=== PATIENT | male | born 1965 | race Caucasian/White ===

== ENCOUNTER 2018-01-06 15:56 | Emergency (ER) | payer OTHER ==
[~2018-01-06] VITALS: Ht 182.9 cm; Wt 101.0 kg
[~2018-01-06 15:56] MED LIST: CYCL-1 PO; HYDR-569 PO; NAPR-1154 PO
[2018-01-06 16:02] VITALS: BP 152/92
[2018-01-06] MEDS ORDERED: ketorolac tromethamine 15mg/ml inj. IM ONE (16:30)
[2018-01-06] MEDS ORDERED: diazepam 5mg tablet PO ONE (16:30)
[2018-01-06] MEDS ORDERED: NAPR-56 PO (16:32)
[2018-01-06] MEDS ORDERED: METH-360 PO (16:32)
== END 2018-01-06 16:55 | disposition home or self-care (01) ==
LOC: ER 15:57
DX: M25.512 Pain in left shoulder (principal); E78.00 Pure hypercholesterolemia, unspecified; I10 Essential (primary) hypertension; F12.90 Cannabis use, unspecified, uncomplicated; Z90.49 Acquired absence of other specified parts of digestive tract; Z79.899 Other long term (current) drug therapy
CPT/HCPCS: 29105; 96372; 99283; A4565; J1885

== ENCOUNTER 2018-05-17 15:34 | Emergency (ER) | payer MEDICAID, OTHER ==
[~2018-05-17] VITALS: Ht 182.9 cm; Wt 98.0 kg
[~2018-05-17 15:34] MED LIST changes: +HYDR-4383 PO; -HYDR-569 PO; +METH-360 PO
[2018-05-17 15:44] VITALS: BP 169/88
[2018-05-17] MEDS ORDERED: DOXYCYCLINE 100MG CAPSULE PO STA (19:07)
[2018-05-17] MEDS ORDERED: LIDOcaine Viscous 15ml cup MM PRN (19:10)
[2018-05-17] MEDS ORDERED: cephalexin 250mg capsule PO ONE (19:10)
[2018-05-17] MEDS ORDERED: ondansetron 4mg rapidly disintigrating tab PO ONE (19:10)
[2018-05-17] MEDS ORDERED: ketorolac trometh inj. 60 MG/2 ML VIAL IM ONE (19:10)
[2018-05-17] MEDS ORDERED: LIDOcaine 1% w/epiNEPHrine 1:200,000 30ml vial IJ ONE (19:10)
[2018-05-17] MEDS ORDERED: dexamethasone sod phosphate 10mg/ml inj IM STA (20:28)
[2018-05-17] MEDS ORDERED: DOXY100C43 PO (20:35)
[2018-05-17] MEDS ORDERED: HYDR-3965 PO (20:35)
[2018-05-17] MEDS ORDERED: CEPH-572 PO (20:35)
[2018-06-11] MEDS ORDERED: IBUP-1986 PO (11:56)
[2018-06-11] MEDS ORDERED: CIPR-230 PO (11:56)
== END 2018-05-17 20:59 | disposition home or self-care (01) ==
LOC: ER 15:35
DX: J36 Peritonsillar abscess (principal); L60.0 Ingrowing nail; E78.00 Pure hypercholesterolemia, unspecified; I10 Essential (primary) hypertension; F12.90 Cannabis use, unspecified, uncomplicated; Z79.899 Other long term (current) drug therapy; Z90.49 Acquired absence of other specified parts of digestive tract
CPT/HCPCS: 10060; 42700; 96372; 99284; J1100; J1885; J3490

== ENCOUNTER 2018-07-30 19:10 | Emergency (ER) | payer MEDICAID ==
[~2018-07-30] VITALS: Ht 182.9 cm; Wt 98.0 kg
[~2018-07-30 19:10] MED LIST changes: +IBUP-1986 PO
[2018-07-30] MEDS ORDERED: ERYT1OIN6 RIGHTEYE (22:17)
[2018-07-30 22:23] VITALS: BP 154/94
== END 2018-07-30 22:24 | disposition home or self-care (01) ==
LOC: ER 19:10
DX: S05.01XA Injury of conjunctiva and corneal abrasion without foreign body, right eye, initial encounter (principal); I10 Essential (primary) hypertension; E78.00 Pure hypercholesterolemia, unspecified; F12.90 Cannabis use, unspecified, uncomplicated; X58.XXXA Exposure to other specified factors, initial encounter; Y93.89 Activity, other specified; Y92.89 Other specified places as the place of occurrence of the external cause; Y99.8 Other external cause status
CPT/HCPCS: 99283; 99284

== ENCOUNTER 2019-05-31 01:29 | Emergency (ER) | payer MEDICAID ==
[~2019-05-31] VITALS: Ht 182.9 cm; Wt 90.9 kg
[2019-05-31 01:33] VITALS: BP 137/81
[2019-05-31] MEDS ORDERED: NO HOME MEDS (01:40)
[2019-05-31 02:14] LABS: ALANINE AMINOTRANSFERASE 31 U/L (12-78); ALBUMIN 3.8 G/DL (3.4-5.0); ALBUMIN/GLOBULIN RATIO 0.9 (1.1-1.5); ALKALINE PHOSPHATASE 122 IU/L (46-116); ANION GAP 2 (8-16); ASPARTATE AMINO TRANSFERASE 20 U/L (10-37); BILIRUBIN,TOTAL 0.8 MG/DL (0.1-1.0); BLOOD UREA NITROGEN 18 MG/DL (7-18); BUN/CREATININE RATIO 15.5 (5.4-32.0); CALCIUM 8.9 MG/DL (8.5-10.1); CHLORIDE 104 MMOL/L (99-107); CREATININE 1.16 MG/DL (0.60-1.10); GLUCOSE 115 MG/DL (70-104); POTASSIUM 4.2 MMOL/L (3.5-5.1); SODIUM 140 MMOL/L (135-145); TOTAL CARBON DIOXIDE 34.3 MMOL/L (24-32); TOTAL PROTEIN 7.9 G/DL (6.4-8.2); eGFR 66 ML/MIN
[2019-05-31 02:26] LABS: BASOPHILS % (AUTO) 0.3 % (0-1); EOSINOPHILS # (AUTO) 0.1 X10'3 (0-0.9); EOSINOPHILS % (AUTO) 0.6 % (0-6); HEMOGLOBIN 15.6 g/dl (14.0-17.9); LYMPHOCYTES # (AUTO) 0.8 X10'3 (1.1-4.8); LYMPHOCYTES % (AUTO) 9.1 % (21-51); MEAN CORPUSCULAR HEMOGLOBIN 29.7 PG (27.0-31.0); MEAN CORPUSCULAR HGB CONC 34.6 g/dL (33.0-36.5); MEAN CORPUSCULAR VOLUME 85.9 FL (78-98); MEAN PLATELET VOLUME 8.9 FL (7.4-10.4); MONOCYTES # (AUTO) 0.4 X10'3 (0-0.9); MONOCYTES % (AUTO) 3.9 % (2-12); NEUTROPHILS % (AUTO) 86.1 % (42-75); PLATELET COUNT 225 X10'3 (140-440); RED BLOOD COUNT 5.24 X10'6 (4.70-6.10); RED CELL DISTRIBUTION WIDTH 14.1 % (11.5-14.5); WHITE BLOOD COUNT 9.3 X10'3 (4.5-11.0)
[2019-05-31] MEDS ORDERED: acetaminophen 325mg tablet PO ONE (03:15)
[2019-05-31] MEDS ORDERED: ondansetron 4mg rapidly disintigrating tab PO ONE (03:15)
--- NOTE | 2019-05-31 03:47 | NUR ---
PT IS DC READY, REPORTS SEVERE INDEGESTION AND STATES STILL SOME MILD NAUSEA. DR. HAMMOND UPDATED AND ORDERING IV MEDS FOR HIS INDEGESTION PRIOR TO DC. PT CALLING HIS GIRLFRIEND NOW FOR DC RIDE HOME.
[2019-05-31] MEDS ORDERED: PANT-47 PO (03:48)
[2019-05-31] MEDS ORDERED: famotidine/PF 10 mg/ml inj IV ONE (03:50)
[2019-05-31] MEDS ORDERED: pantoprazole 40 MG vial IV ONE (03:50)
== END 2019-05-31 03:57 | disposition home or self-care (01) ==
LOC: ER 01:29
DX: R07.89 Other chest pain (principal); E78.00 Pure hypercholesterolemia, unspecified; I10 Essential (primary) hypertension; F12.90 Cannabis use, unspecified, uncomplicated; Z90.49 Acquired absence of other specified parts of digestive tract; Z79.899 Other long term (current) drug therapy
CPT/HCPCS: 36415; 71045; 80053; 84484; 85025; 93005; 96374; 96375; 99284; C9113; J3490

== ENCOUNTER 2022-08-15 15:52 | Emergency (ER) | payer MEDICAID ==
[~2022-08-15] VITALS: Ht 185.4 cm; Wt 97.7 kg
[~2022-08-15 15:52] MED LIST changes: -CYCL-1 PO; -HYDR-4383 PO; -IBUP-1986 PO; -METH-360 PO; -NAPR-1154 PO; +NO HOME MEDS; +PANT-47 PO
[2022-08-15] MEDS ORDERED: normal saline 1000ml 1,000 ML IV ONE (16:10)
[2022-08-15 16:48] LABS: BASOPHILS % (AUTO) 0.1 % (0-1); EOSINOPHILS % (AUTO) 0.6 % (0-6); HEMATOCRIT 44.4 % (42.0-52.0); HEMOGLOBIN 15.1 g/dl (14.0-17.9); LYMPHOCYTES # (AUTO) 0.6 X10'3 (1.1-4.8); MEAN CORPUSCULAR HEMOGLOBIN 29.4 PG (27.0-31.0); MEAN CORPUSCULAR VOLUME 86.4 FL (78-98); MEAN PLATELET VOLUME 8.7 FL (7.4-10.4); MONOCYTES # (AUTO) 0.3 X10'3 (0-0.9); MONOCYTES % (AUTO) 3.6 % (2-12); NEUTROPHILS % (AUTO) 87.7 % (42-75); PLATELET COUNT 188 X10'3 (140-440); RED BLOOD COUNT 5.14 X10'6 (4.70-6.10); RED CELL DISTRIBUTION WIDTH 14.5 % (11.5-14.5)
[2022-08-15 16:55] LABS: ALANINE AMINOTRANSFERASE 19 U/L (12-78); ALBUMIN 3.4 G/DL (3.4-5.0); ALBUMIN/GLOBULIN RATIO 0.9 (1.1-1.5); ALKALINE PHOSPHATASE 113 IU/L (46-116); ANION GAP 7 (8-16); ASPARTATE AMINO TRANSFERASE 20 U/L (10-37); BILIRUBIN,TOTAL 0.9 MG/DL (0.1-1.0); BLOOD UREA NITROGEN 19 MG/DL (7-18); BUN/CREATININE RATIO 21.3 (10.0-20.0); CALCIUM 8.5 MG/DL (8.5-10.1); CHLORIDE 103 MMOL/L (99-107); CREATININE 0.89 MG/DL (0.60-1.10); ETHANOL < 0.010 GM/DL (0.0-0.010); GLUCOSE 114 MG/DL (70-104); LIPASE 944 U/L (73-393); POTASSIUM 3.9 MMOL/L (3.5-5.1); SODIUM 133 MMOL/L (135-145); TOTAL CARBON DIOXIDE 22.8 MMOL/L (24-32); TOTAL PROTEIN 7.3 G/DL (6.4-8.2); eGFR 89 ML/MIN
[2022-08-15] MEDS ORDERED: morphine 4 MG/ML inj SYRINge IV ONE (18:15)
[2022-08-15] MEDS ORDERED: ondansetron/PF 4mg/2ml inj IV ONE (18:15)
[2022-08-15 18:37] LABS: URINE AMPHETAMINE SCREEN POSITIVE (Neg); URINE BARBITUATE SCREEN NEGATIVE (Neg); URINE BENZODIAZEPINES SCREEN NEGATIVE (Neg); URINE CANNABINOID SCREEN POSITIVE (Neg); URINE COCAINE SCREEN NEGATIVE (Neg); URINE METHADONE SCREEN NEGATIVE (Neg); URINE OPIATE SCREEN NEGATIVE (Neg); URINE PHENCYCLIDINE SCREEN NEGATIVE (Neg)
--- NOTE | 2022-08-15 18:39 | NUR ---
Patient just finished with US and is resting comfortably on gurney.
[2022-08-15 18:43] LABS: CLARITY,URINE CLEAR (Clear); COLOR,URINE YELLOW (Yellow); GLUCOSE, URINE NEGATIVE (Neg); KETONES,URINE NEGATIVE (Neg); LEUKOCYTE ESTERASE ,URINE NEGATIVE (Neg); NITRITES, URINE NEGATIVE (Neg); OCCULT BLOOD,URINE NEGATIVE (Neg); PH,URINE 6.5 (4.8-8.0); PROTEIN,URINE NEGATIVE (Neg); UROBILINOGEN,URINE 0.2 E.U/dL (0.2-1.0)
[2022-08-15 18:56] LABS: UA COLLECTION TYPE CLN CATCH MIDSTREAM
--- NOTE | 2022-08-15 19:25 | NUR ---
Per JACQUES Enriquez I will PO challange the patient now.
[2022-08-15 19:35] LABS: TRIGLYCERIDES 105 MG/DL (20-135)
[2022-08-15] MEDS ORDERED: HYDR-3965 PO (20:04)
[2022-08-15] MEDS ORDERED: ONDA4TAB12 PO (20:04)
[2022-08-15 21:08] VITALS: BP 124/83
== END 2022-08-15 21:11 | disposition home or self-care (01) ==
LOC: ER 15:53
DX: K85.90 Acute pancreatitis without necrosis or infection, unspecified (principal); R11.2 Nausea with vomiting, unspecified; E78.00 Pure hypercholesterolemia, unspecified; I10 Essential (primary) hypertension; F12.90 Cannabis use, unspecified, uncomplicated; Z90.49 Acquired absence of other specified parts of digestive tract; Z79.899 Other long term (current) drug therapy
CPT/HCPCS: 36415; 76700; 80053; 80305; 80320; 81003; 83690; 83735; 84478; 85025; 96361; 96374; 96375; 99285; J2270; J2405; J7030

== ENCOUNTER 2025-02-05 08:21 | Emergency (ER) | payer MEDICAID ==
[~2025-02-05 08:21] MED LIST changes: +ONDA-243 PO
== END 2025-02-05 09:17 | disposition left against medical advice (07) ==
LOC: ER 08:21
DX: I10 Essential (primary) hypertension (principal); Z53.21 Procedure and treatment not carried out due to patient leaving prior to being seen by health care provider

== ENCOUNTER 2025-02-09 12:42 | Emergency (ER) | payer MEDICAID ==
[~2025-02-09] VITALS: Ht 182.9 cm; Wt 96.3 kg
--- NOTE | 2025-02-09 13:31 | RADIOLOGY REPORT ---
CHEST RADIOGRAPH Indication: CP Technique: DI CHEST,SINGLE VIEW Comparison: None FINDINGS: The cardiac silhouette is unremarkable. The lungs demonstrate no pulmonary airspace consolidation. The pulmonary vasculature is unremarkable. There is no pleural effusion. There is no pneumothorax. IMPRESSION: No pulmonary airspace consolidation.
[2025-02-09 13:35] LABS: MEAN PLATELET VOLUME 9.2 FL (7.4-10.4); RED CELL DISTRIBUTION WIDTH 14.3 % (11.5-14.5)
[2025-02-09 13:57] LABS: CREATININE 1.15 MG/DL (0.60-1.10); PRO BRAIN NATRIURETIC PEPTIDE 56 PG/ML (0-125); TOTAL CARBON DIOXIDE 27.0 MMOL/L (24-32); eCRCL 78 ML/MIN; eGFR 66 ML/MIN
--- NOTE | 2025-02-09 15:38 | Physician Documentation ---
History of Present Illness ~ Chief Complaint: Hypertension Stated Complaint: ELEVATED BP Time Seen by MD: 14:43 Primary Medical Doctor: NONE Source: patient Mode of Arrival: Ambulatory Exam Limitations: no limitations HPI Patient is presented secondary to hypertension. He states he had a recent admission to [facility] however he left prior to being discharged. He had a full workup at [facility] in including a stress test and echocardiogram. States that he also had an MRI of his brain. He states he initially had a blood pressure of 210/150 prompting him to seek emergent care. On arrival blood pressure 145/98. Initially c/o left chest pain. States that pain has resolved. Medication Reconciliation Allergies: Coded Allergies: No Known Allergies (Unverified , 02/09/25) Scheduled Amlodipine Besylate (Amlodipine Besylate), 1 TAB PO DAILY Pantoprazole Sodium (PROTONIX tablet), 1 TAB PO DAILY Scheduled PRN ONDANSETRON ODT 4mg tablet (Ondansetron Odt), 1 TABLET PO Q6H PRN for nausea/vomiting Miscellaneous Medications Home Med List (No Home Medications), (Reported) Past Medical History Past Medical History: High Cholesterol, Hypertension Past Surgical History: appendectomy Smoking Status: Current every day smoker Alcohol Use: None Drug Use: marijuana Lives with: Other Review of Systems ROS Review of systems negative except documented in HPI. Physical Exam Vital Signs: Temperature: 97.5, Source: Oral, Heart Rate: 62, Respiratory Rate: 14, BP: 143/92, Pulse Oximetry: 97, Weight: 96.300 Oxygen Flow Rate: 0 Pulse Oximetry Reflects: adequate oxygenation Physical Exam General: Awake, alert, oriented. No apparent distress Neck: Supple. Normal range of motion. No JVD Respiratory: Lungs are wheezing on the right base. Chest: Normal shape and size. No accessory muscle use. Cardiovascular: Regular rate and rhythm. S1-S2. No murmur, gallop, rub. Gastrointestinal: Abdomen is soft. Nontender to palpation. Bowel sounds present. Extremities: No lower extremity edema, cyanosis or clubbing. Neurologic: Alert and oriented x4. Nonfocal Psychiatric: Normal mood and affect. Skin: Normal color. Warm and dry. Progress Results/Orders Results/Orders Vital Signs 02/09/25 02/09/25 02/09/25 02/09/25 12:49 13:21 13:52 14:54 Temp 97.5 Pulse 84 67 62 Resp 18 18 14 B/P (MAP) 145/95 146/81 (102) 143/92 (109) Pulse Ox 98 97 97 O2 Flow Rate 0 0 02/09/25 02/09/25 16:00 16:37 Temp 97.5 Pulse 59 60 Resp 18 18 B/P (MAP) 149/93 (111) 120/82 Pulse Ox 97 98 O2 Flow Rate 0 Laboratory Tests Test 02/09/25 13:20 02/09/25 14:55 02/09/25 16:11 White Blood Count 6.4 Red Blood Count 4.86 Hemoglobin 14.3 Hematocrit 41.8 L Mean Corpuscular Volume 86.1 Mean Corpuscular Hemoglobin 29.4 Mean Corpuscular Hemoglobin Concent 34.1 Red Cell Distribution Width 14.3 Platelet Count 229 Mean Platelet Volume 9.2 Neutrophils (%) (Auto) 51.8 Lymphocytes (%) (Auto) 35.1 Monocytes (%) (Auto) 9.7 Eosinophils (%) (Auto) 2.6 Basophils (%) (Auto) 0.8 Neutrophils # (Auto) 3.3 Lymphocytes # (Auto) 2.2 Monocytes # (Auto) 0.6 Eosinophils # (Auto) 0.2 Basophils # (Auto) 0.0 CBC Comment Sodium Level 142 Potassium Level 3.8 Chloride Level 107 Carbon Dioxide Level 27.0 Anion Gap 8 Blood Urea Nitrogen 23 H Creatinine 1.15 H Estimated GFR/1.73 m2 66 BUN/Creatinine Ratio 20.0 Glucose Level 129 H Calcium Level 8.5 Troponin I High Sensitivity 81 *H 83 *H 84 *H Pro-B-Type Natriuretic Peptide 56 Albumin 3.5 Chemistry Comments Troponin I High Sens Percent Delta 2 1 Troponin I Hi Sens Absolute Change 2 1 EKG/XRAY/CT/US/VASC/MRI EKG : Intepreting Monitor?: Yes Indication: chest pain EKG: NSR EKG Blocks: none [place]: normal Hypertrophy: none Additional Comment EKG time 12:49 p.m.. Sinus rhythm rate of 84. Normal axis. No acute ST changes. Heart Score: Heart Score Response (Comments) Value History Slightly Suspicious 0 EKG Normal 0 Age 45-64 1 Risk Factors 1 or 2 risk factors 1 Troponin 1-2 x's Normal limit 1 Total 3 Medical Decision Making Findings Records from [facility] were reviewed. Patient had an echocardiogram January 19, 2025. Demonstrates an LVEF of 60%. Mild AI. Normal RV systolic function. MRI was completed that shows no acute cerebral abnormalities. Myocardial perfusion scan January 19, 2025 shows no evidence of ischemia or infarct. He did complain of chest pain initially which resolved. Given his negative workup recently this is reassuring. His heart score is three. He we will be discharged home with follow up instructions. With regards to his high blood pressure, it was not quite as high as it was documented at home. Suspect that his home blood pressure cuff may be slightly inaccurate given his blood pressure in the 140s here. I will treat with a small dose of blood pressure medication and he was encouraged to monitor his blood pressure at home. Return for new or worsening symptoms. Clinical suspicion for ACS, PE, aortic dissection, other acute intrathoracic abnormalities Differential Dx:Considerations: Include CHF, Include HTN, essential, Include HTN, accelerated, Include HTN, malignant, Include HTN, encephalopathy, Include medication withdrawal, Include pulmonary edema Departure Time of Disposition: 15:37 Disposition: 01 HOME / SELF CARE / HOMELESS Impression: Primary Impression: Benign hypertension Condition: Stable Discharge Instructions: Hypertension, Adult Additional Instructions: Blood pressure has been elevated. I will start you on a blood pressure medication called amlodipine. You will take it once daily. Recommend continuing monitoring of your blood pressure. Recommends low-sodium diet. Regular physical activity. Stay well hydrated. Return for new or worsening symptoms. Recommend that you follow up with the primary care provider if he do not have a primary care provider please call [facility]. As we discussed, you may also call [facility] to see which primary care provider you are sign two. Referrals: NO PRIMARY CARE PROVIDER (PCP) Prescriptions Amlodipine Besylate (Amlodipine Besylate) 5 Mg Tablet 1 TAB PO DAILY for 30 Days, #30 TAB 0 Refills Prov: NANCI MUNROE NP 02/09/25 Education Educated: Patient Educated regarding: diagnosis, treatment, need for follow up Signature Scribe Signature: No scribe Attestation: The note accurately reflects work and decisions made by me.Nanci Munroe - LG 02/09/25 18:03 This note was created with the assistance of voice recognition software whereby errors in grammar, syntax, and/or spelling may have occurred despite active proofreading efforts by the author. Please do not hesitate to contact the provider for clarification or for questions regarding the content of this document. NANCI MUNROE NP Feb 09, 2025 15:38
[2025-02-09] MEDS ORDERED: AMLO5TAB16 PO (16:17)
[2025-02-09 16:37] VITALS: BP 120/82; PULSE 60; RESP 18; TEMP 97.5; O2SAT 98
--- NOTE | 2025-02-10 06:36 | ELECTROCARDIOGRAPH REPORT ---
[facility] Test Date: 2025-02-09 Test Time: 12:49:12 Pat Name: ROSARIO BENTLEY Department: EMERGENCY ROOM Room: Gender: M [employer]: : [id number] Requested By: JONATHAN GUTIÉRREZ Order Number: [id number] Reading MD: Measurements Intervals [place] Rate: 84 P: 69 NC: 170 QRS: 41 QRSD: 89 T: -1 QT: 358 QTc: 424 Interpretive Statements Sinus rhythm Please click the below link to view image of tracing.
== END 2025-02-09 16:36 | disposition home or self-care (01) ==
LOC: ER 12:43
DX: I10 Essential (primary) hypertension (principal); R06.02 Shortness of breath; E78.00 Pure hypercholesterolemia, unspecified; F12.90 Cannabis use, unspecified, uncomplicated; F17.200 Nicotine dependence, unspecified, uncomplicated; Z90.49 Acquired absence of other specified parts of digestive tract
CPT/HCPCS: 36415; 71045; 80048; 83880; 84484; 85025; 93005; 99285